=== PATIENT | female | born 1980 | race Caucasian/White ===

== ENCOUNTER 2020-04-21 14:44 | Outpatient (CLI) | payer MEDICAID | END 2020-04-21 23:59 | disposition home or self-care (01) | LOC: RAD 14:44 | PROVIDERS: ATTEND Nurse Practitioner Family | DX: M54.5 Low back pain (principal); R35.0 Frequency of micturition | CPT/HCPCS: 76770 ==

== ENCOUNTER 2020-04-23 12:38 | Emergency (ER) | payer MEDICAID ==
[~2020-04-23] VITALS: Ht 175.3 cm; Wt 122.0 kg
--- NOTE | 2020-04-23 14:25 | NUR ---
[employer]HB[employer] OFFICER: PT WALKED BACK FROM LOBBY TO ROOM AT THIS TIME.
--- NOTE | 2020-04-23 14:28 | NUR ---
URINE CUP PROVIDED, UA ORDERED.
--- NOTE | 2020-04-23 14:55 | NUR ---
FIRST CONTACT WITH PT. PT HAS KIDNEY STONE THAT HAS NOT PASSED. WAS SEEN HERE ON TUESDAY FOR SAME REASON. PAIN HAS NOT DECREASED. PT DENIES ANY OTHER SX. PT'S AOX4. RESPS EVEN AND UNLABORED. BP/SPO2 MONITORS IN PLACE. CALL LIGHT WITHIN REACH. EDMD AT BEDSIDE TO EVALUATE AT THIS TIME.
--- NOTE | 2020-04-23 14:56 | NUR ---
PT AMB TO BR AND BACK TO ROOM WITH STEADY GAIT. URINE CUP GIVEN.
--- NOTE | 2020-04-23 14:59 | NUR ---
URINE COLLECTED AND UA SENT.
[2020-04-23 15:24] LABS: BASOPHILS # (AUTO) 0.02 x10^3/uL (0-0.1); BASOPHILS % (AUTO) 0 % (0-1); EOSINOPHILS # (AUTO) 0.28 x10^3/uL (0-0.4); EOSINOPHILS % (AUTO) 2 % (1-7); LYMPHOCYTES # (AUTO) 2.12 x10^3/uL (1-3.4); LYMPHOCYTES % (AUTO) 16 % (22-44); MD NO; MEAN CORPUSCULAR HGB CONC 32.8 g/dL (32.4-35.8); MEAN CORPUSCULAR VOLUME 88.4 fL (80-100); MONOCYTES # (AUTO) 0.54 x10^3/uL (0.2-0.8); MONOCYTES % (AUTO) 4 % (2-9); NEUTROPHILS % (AUTO) 77 % (42-75); PLATELET COUNT 356 x10^3/uL (130-400); RED BLOOD COUNT 4.14 x10^6/uL (3.82-5.3); RED CELL DISTRIBUTION WIDTH 14.9 % (9.6-15.2)
[2020-04-23 15:26] LABS: MICROSCOPIC AUTO
[2020-04-23 15:31] LABS: ALANINE AMINOTRANSFERASE 34 U/L (12-78); ALBUMIN 3.4 g/dL (3.4-5.0); ANION GAP 2 mmol/L (5-15); CALCIUM 8.7 mg/dL (8.5-10.1); CHLORIDE 111 mmol/L (98-107); CREATININE 0.85 mg/dL (0.55-1.02)
[2020-04-23 15:36] LABS: ALKALINE PHOSPHATASE 81 U/L (45-117); BILIRUBIN,TOTAL 0.2 mg/dL (0.2-1.0); TOTAL PROTEIN 7.5 g/dL (6.4-8.2)
--- NOTE | 2020-04-23 15:49 | NUR ---
Aashish solano in [facility] - 04/23/20 at 1550 by LEIGHANN PA AT BEDSIDE TO EXPLAIN ALL RESULTS AT THIS TIME.
--- NOTE | 2020-04-23 15:49 | NUR ---
WARM BLANKET GIVEN. LIGHTS DIMMED FOR PT COMFORT.
--- NOTE | 2020-04-23 16:18 | NUR ---
PT TO CT AT THIS TIME.
--- NOTE | 2020-04-23 16:44 | NUR ---
PT BACK TO ROOM FROM CT AT THIS TIME.
--- NOTE | 2020-04-23 17:30 | NUR ---
EDMD AT BEDSIDE TO EXPLAIN ALL RESULTS AT THIS TIME.
[2020-04-23 17:33] VITALS: BP 129/66
--- NOTE | 2020-04-23 18:15 | NUR ---
REPORT GIVEN TO [place].
== END 2020-04-23 18:46 | disposition home or self-care (01) ==
LOC: ED 17:10
DX: S39.012A Strain of muscle, fascia and tendon of lower back, initial encounter (principal); S33.5XXA Sprain of ligaments of lumbar spine, initial encounter; R50.9 Fever, unspecified; R10.9 Unspecified abdominal pain; J45.909 Unspecified asthma, uncomplicated; X58.XXXA Exposure to other specified factors, initial encounter; Y93.89 Activity, other specified; Y92.89 Other specified places as the place of occurrence of the external cause; Y99.8 Other external cause status
CPT/HCPCS: 36415; 74176; 80053; 81001; 83690; 84703; 85025; 87086; 99284

== ENCOUNTER → 2020-08-13 | Outpatient (CLI) | payer MEDICAID | END | disposition home or self-care (01) | LOC: CVU 08:31 | PROVIDERS: ATTEND Nurse Practitioner | DX: M79.661 Pain in right lower leg (principal); M79.662 Pain in left lower leg | CPT/HCPCS: 93970 ==

== ENCOUNTER → 2021-03-11 | Outpatient (CLI) | payer MEDICAID | END | disposition home or self-care (01) | LOC: CFH 12:15 | PROVIDERS: ATTEND Nurse Practitioner | DX: Z12.31 Encounter for screening mammogram for malignant neoplasm of breast (principal) | CPT/HCPCS: 77067 ==